=== PATIENT | male | born 2000 | race Caucasian/White ===

== ENCOUNTER 2023-01-27 13:13 | Outpatient (CLI) | payer OTHER ==
--- NOTE | 2023-01-28 10:05 | MRI Report ---
PROCEDURE: KNEE WO - RT INDICATIONS: PAIN IN RIGHT KNEE TECHNIQUE: Noncontrast sagittal PD fast spin echo and T2 fast spin echo with fat saturation, sagittal 3-D spoile d GE with fat saturation; coronal T1 spin echo and PD fast spin echo with fat saturation, and axial P D fast spin echo with fat saturation through the knee. COMPARISON: None. FINDINGS: Image quality: Excellent. Anterior cruciate ligament: The anterior cruciate ligament is mildly attenuated, which may be second ric to a remote prior partial tear. The bulk of the ligament fibers appear to be intact. Posterior cruciate ligament: Intact. Medial collateral ligament: Intact. Lateral collateral ligament: Intact. Medial meniscus: Intact. Lateral meniscus: Mildly truncated appearance of the lateral meniscus is most likely secondary to a prior partial meniscectomy. There appears to be a recurrent or residual focal shallow radial tear at the posterior horn. Medial and lateral tendons: The semimembranosus tendon insertions appear intact. Visualized portion s of the pes anserinus tendons appear normal. The popliteus tendon appears intact. Iliotibial band appears normal. Anterior structures: The patellar tendon and the distal quadriceps tendon appear intact. No patellar subluxation. No femoral trochlear dysplasia or ventral trochlear prominence. Mild scarring is seen in the infrapatellar fat pad. Bones: No acute trabecular bone injury or fracture. Medial femorotibial cartilage: Intact. Lateral femorotibial cartilage: Focal full-thickness cartilage loss is seen at the far posterior por tion of the lateral femoral condyle measuring approximately 7 x 4 mm with focal subchondral cystic ch anges and subchondral osteophyte formation. 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 Patellofemoral cartilage: Intact. Soft tissues: There is a small joint effusion. There is a trace medial popliteal cyst. The musculat ure surrounding the knee is normal in bulk. IMPRESSION: 1.Postsurgical changes from partial lateral meniscectomy. Recurrent focal shallow radial tear is seen at the posterior horn. There is mild extrusion of the meniscal body beyond the femorotibial joint li ne. 2.Mildly attenuated appearance of the anterior cruciate ligament may be secondary to remote prior par tial tearing. However, the bulk of the ligament fibers remain in continuity. 3.Focal full-thickness cartilage defect at the far posterior portion of the lateral femoral condyle m easuring 7 x 4 mm with focal subchondral cystic changes and subchondral osseous information. Backgrou nd grade 2-3 chondromalacia in the lateral femorotibial compartment. 4.Small joint effusion. Reviewed by: Adria Prather MD on 01/28/2023 10:04 AM PDT Approved by: Adria Prather MD on 01/28/2023 10:04 AM PDT Station ID: [id number]
== END 2023-01-27 13:14 | disposition home or self-care (01) ==
LOC: DI 13:13
PROVIDERS: ATTEND Physician Assistant
DX: S83.241A Other tear of medial meniscus, current injury, right knee, initial encounter (principal); M94.261 Chondromalacia, right knee; M25.461 Effusion, right knee; M23.91 Unspecified internal derangement of right knee

== ENCOUNTER 2023-08-05 18:13 | Emergency (ER) | payer OTHER ==
--- NOTE | 2023-08-05 18:42 | ED Physician Documentation ---
PD HPI CHEST PAIN - Stated complaint Stated Complaint: CHEST/BACK PX - Chief complaint Chief Complaint: Cardiac - Additional information Additional information: 23-year-old male with no pertinent past medical history presents emergency department for right chest pain. Patient said he has no cardiac history has no family cardiac history he says that he may have slept on his side wrong he woke up having some right lateral chest pain most of the pain is on the right side pain increases with ambulation. He has not had any recent trauma or injuries no shortness of breath no dizziness. Pain is reproducible with palpation. No family hx of young cardiac disease. PD PAST MEDICAL HISTORY - Past Medical History Past Medical History: No Cardiovascular: None Respiratory: None, COPD Neuro: None Endocrine/Autoimmune: None GI: None : None HEENT: None Psych: None Musculoskeletal: None - Past Surgical History Past Surgical History: Yes Ortho: Arthroscopic surgery - Present Medications Home Medications: Ambulatory Orders Medication Instructions Recorded Confirmed HYDROcod/ACETAM 5/325 [[place] 5/325] 1 tablet PO Q6H PRN #7 tablet 08/05/23 - Allergies Allergies/Adverse Reactions: Allergies Allergy/AdvReac Type Severity Reaction Status Date / Time No Known Drug Allergies Allergy Verified 08/05/23 18:18 - Social History Does the pt smoke?: No Smoking Status: Never smoker Does the pt drink ETOH?: No Does the pt have substance abuse?: No - Immunizations Immunizations are current?: Yes PD ED PE NORMAL - Vitals Vital signs reviewed: Yes - HEENT HEENT: Atraumatic - Cardiac Cardiac: RRR, No murmur, No gallop, Strong equal pulses - Respiratory Respiratory: No respiratory distress, Clear bilaterally - Derm Derm: Normal color, Warm and dry, No rash - Extremities Extremities: No edema, No calf tenderness / cord - Psych Psych: Normal mood, Normal affect Results - Vitals Vitals: Vital Signs - 24 hr 08/05/23 08/05/23 08/05/23 18:18 18:27 20:41 Temperature 36.7 C 36.5 C Heart Rate 56 L 55 L 60 Respiratory 16 15 16 Rate Blood Pressure 152/81 H 126/93 H 124/88 H O2 Saturation 100 96 98 Oxygen O2 Source Room air - EKG (time done) 1826 EKG releavant findings:: EKG personally interpreted by author of this note. Relevant findings are: Rate: Rate (enter#) (58) Rhythm: NSR [place]: Normal Intervals: Normal MD. No: Prolonged QT QRS: Normal Ischemia: Normal ST segments Computer interpretation: Agree with computer - Rads (name of study) Chest x-ray Relevant Findings:: Final report received, EMP independent interpretation of test, Other (No acute cardiopulmonary abnormalities.) PD Medical Decision Making - ED course ED course: Exam without evidence of volume overload so doubt heart failure. EKG without signs of active ischemia. Presentation not consistent with acute PE (Wells low risk low),pneumothorax (not visualized on chest xr, As well as no rib fractures), thoracic aortic dissection, pericarditis, tamponade, pneumonia (no infectious symptoms, clear chest xr), myocarditis (no recent illness). I do not believe this is cardiac related given that it is very reproducible and pain is worse with any movement of his right arm. He was given Tylenol and ketorolac here in the emergency department as well as a one-time dose of oxycodone. Pain had somewhat improved with these medications as well as a lidocaine patch. Outpatient patient was told to continue to stretch more frequently and to use lidocaine patches that he can get [id number] at any preferred pharmacy. I am prescribing a short course of short-acting opioid pain medication for this patient. I have reviewed the patients [employer] and no concerning findings were noted. I have discussed that the opioids are for short term therapy only, and will not be refilled from the ED. please hold the follow-up with his primary care provider for further evaluation of this and to alternate between 20 minutes of ice and 20 minutes of heat and that this is most likely costochondritis. Departure - Departure Disposition: 01 Home, Self Care Clinical Impression: Costochondral chest pain Instructions: ED Chest Pain Costochondritis Prescriptions: HYDROcod/ACETAM 5/325 [[place] 5/325] 1 tablet PO Q6H PRN #7 tablet PRN Reason: Pain Comments: Thank you for trusting us with your care. We have completed chest x-rays and we are not seeing any acute abnormalities or findings at this point in time with your lungs or with your bones. We have given you Tylenol and ketorolac here in the emergency department do not take ibuprofen for another 12 hours from now. You can take 650 mg of Tylenol in 8 hours from now. You can also put lidocaine patch that right chest. Alternate between 20 minutes of ice and 20 minutes of heat and do some gentle range of motion exercises so that you do not get too stiff and follow-up with your primary care provider for further evaluation. I am prescribing a short course of narcotic pain medication for you. These are potentially dangerous and addictive medications that should be used carefully. These medications may constipate you. Take an [id number] stool softener (docusate) twice daily with plenty of water while taking these medications. If you go 24 hours without a bowel movement, take [id number] miralax, per package instructions. Do not drink or drive while taking these medications. If you received narcotic or sedating medications while in the emergency department, do not drive for 24 hours. Store this medication in a safe, secure place and out of reach of children. It is a violation of federal law to give or sell this medication to another person or to use in a manner other than prescribed. The ED will not refill narcotic prescriptions, including prescriptions lost or stolen. To dispose of unwanted medications: 1. [facility] at [address] [place] [address] in [place] has a medication drop box. They accept prescription medications (in pill form) Friday through Friday 9:00 a.m. to 5:00 p.m. 2. [facility], [place] [employer] accepts prescription medications (in pill form only) for disposal year round. Call for more information. 3. Contact the [facility] for the next [facility] sponsored prescription drug collection event. , [phone], or [phone]; Note that many narcotic pain relievers also contain Tylenol/acetaminophen. Please ensure that your total dose of acetaminophen from all sources does not exceed 3 g (3000 mg) per day. Forms: PCP List, Activity restrictions Discharge Date/Time: 08/05/23 20:41
[2023-08-05] MEDS: KETOROLAC 30 MG/ML VIAL IM STA (18:52)
[2023-08-05] MEDS: ACETAMINOPHEN 325 MG TABLET PO STA (18:52)
--- NOTE | 2023-08-05 19:28 | XRAY Report ---
PROCEDURE: Chest 2V INDICATIONS: right chest pain TECHNIQUE: 2 views of the chest were acquired. COMPARISON: None. FINDINGS: Surgical changes and devices: None. Lungs and pleura: No pleural effusions or pneumothorax. Lungs are clear. Mediastinum: Mediastinal contours appear normal. Heart size is normal. Bones and chest wall: No suspicious bony lesions. Overlying soft tissues appear unremarkable. IMPRESSION: No acute cardiopulmonary process. Reviewed by: Laura Ware MD on 08/05/2023 7:26 PM PDT Approved by: Laura Ware MD on 08/05/2023 7:26 PM PDT Station ID: [id number]
[2023-08-05] MEDS: oxyCODONE 5 MG TABLET PO STA (20:07)
[2023-08-05] MEDS: LIDOCAINE-EPINEPH-TETRACAINE 3 ML SYRINGE TOP STA (20:08)
[2023-08-05] MEDS: LIDOCAINE PATCH 5% TOP STA (20:37)
[2023-08-05 20:47] VITALS: BP 124/88; O2SAT 98
== END 2023-08-05 20:41 | disposition home or self-care (01) ==
LOC: ED 18:13
DX: R07.1 Chest pain on breathing (principal); J44.9 Chronic obstructive pulmonary disease, unspecified
CPT/HCPCS: 71046; 93005; 96372; 99283; 99284; A9270